=== PATIENT | female | born 1945 | race Caucasian/White ===

== ENCOUNTER → 2016-12-04 | Outpatient (CLI) | payer OTHER ==
[~2016-12-04] MED LIST: IOPAMIDOL (ISOVUE-300) 50 ML VIAL IV ONE
--- NOTE | 2016-12-04 18:17 | CT ---
CT Abdomen and Pelvis (Without and With Contrast) CT Urogram 1509 hours History: Gross hematuria and dysuria (R 31.0, R 30.0). Technique: Spiral images were obtained through the abdomen and pelvis without contrast for renal ston e evaluation. 90 mL of Isovue-300 IV contrast were administered and spiral images were obtained throu gh the abdomen. After a 12-minute delay, spiral imaging was obtained through the abdomen and pelvis. Images were reconstructed in multiple planes for CT urogram imaging. An AP scanogram auction block clerk image was also obtained over the abdomen and pelvis after axial imaging was acquired. Dose reduction techniques were utilized. Findings: On the noncontrast images, there is a tiny 1 mm nonobstructive calculus mid to upper right kidney. No additional urinary tract calculus is seen associate with the kidneys or along the course o f the ureters. There is no hydronephrosis. The bladder is distended without evidence of focal thicken ing along the wall. The wall has a normal contour. No bladder calculus is seen. With IV contrast administration, there is good uptake and excretion of contrast by the kidneys. No fi lling defects are seen within the collecting system on either side with normal contour to the renal c ollecting structures, as well as the ureters. The bladder has a normal contour. No bladder lesion is seen. Liver: Within the right lobe liver posterior segment adjacent to right hepatic vein near the dome the re is a subtle hypodense lesion identified on precontrast and venous phase postcontrast imaging is ba rely discernible on delayed imaging. This lesion measures 23 x 15 mm transversely x 17 mm longitudina lly. No additional liver lesions are identified.. Spleen: Normal. Gallbladder and Bile Ducts: The gallbladder is contracted but otherwise normal. No biliary ductal di latation is seen. Pancreas: Normal. Adrenals: Normal. Abdominal Aorta: No aneurysm. Pelvic structures: The uterus has a normal contour. No significant adnexal mass is seen. Bladder: Distended but otherwise normal. Appendix: Normal. Bowel Loops: Normal. No bowel obstruction, ascites, or significant retroperitoneal lymphadenopathy. Skeletal system: There is an Tarlov cysts associated with the S2 neuroforamen. Marked disk space susan rowing with endplate sclerosis is present along the right-side of L2-L3 with associated mild levoscol iosis. There is about 3 mm of anterior subluxation of L4 on L5 that appears be secondary to facet hyp ertrophy. No additional subluxations are appreciated. There are no lytic or sclerotic osseous lesions . Impression: 1. Normal CT urogram. No underlying renal or ureteral lesions are seen as well as normal contour to t he bladder. 2. Hypodense lesion right lobe liver posterior segment adjacent to the right hepatic vein near the do me that has subtle peripheral enhancement on venous phase imaging and is barely visualized on delayed imaging. This probably represents incidental hemangioma, however, findings are nonspecific. Consider correlation with ultrasound of the liver with attention to this location to determine if this could just represent incidental hemangioma. 3. Incidental Tarlov cysts associated with the S2 neuroforamen.
== END ==
LOC: FIMAGING 14:20
PROVIDERS: ATTEND Specialist
DX: N20.0 Calculus of kidney (principal)
CPT/HCPCS: 74178; Q9967

== ENCOUNTER → 2017-03-01 | Outpatient (CLI) | payer OTHER | LOC: FIMAGING 15:43 | PROVIDERS: ATTEND Physician Assistant | DX: M79.661 Pain in right lower leg (principal) ==

== ENCOUNTER → 2017-12-23 | Outpatient (CLI) | payer OTHER | LOC: FIMAGING 13:44 | PROVIDERS: ATTEND Internal Medicine | DX: Z12.31 Encounter for screening mammogram for malignant neoplasm of breast (principal) ==

== ENCOUNTER → 2019-01-13 | Outpatient (CLI) | payer OTHER | LOC: FIMAGING 13:13 | PROVIDERS: ATTEND Internal Medicine | DX: Z12.31 Encounter for screening mammogram for malignant neoplasm of breast (principal); Z80.3 Family history of malignant neoplasm of breast ==

== ENCOUNTER → 2019-03-10 | Outpatient (CLI) | payer OTHER | LOC: BHFA 13:30 | PROVIDERS: ATTEND Internal Medicine Cardiovascular Disease | DX: I47.1 Supraventricular tachycardia (principal); E78.5 Hyperlipidemia, unspecified; R73.03 Prediabetes ==

== ENCOUNTER → 2019-03-25 | Outpatient (CLI) | payer OTHER | LOC: BHCLAF 10:00 | PROVIDERS: ATTEND Internal Medicine Cardiovascular Disease | DX: R00.2 Palpitations (principal) | CPT/HCPCS: 93306-PO ==

== ENCOUNTER → 2019-03-30 | Outpatient (CLI) | payer OTHER | DX: R00.2 Palpitations (principal) ==